=== PATIENT | male | born 1955 | race African-American/Black ===

== ENCOUNTER → 2017-07-26 | Outpatient (CLI) | payer OTHER ==
--- NOTE | 2017-07-26 16:04 | RADIOLOGY REPORT (SQ) ---
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 RADIONUCLIDE AND DOSE: 21.4 millicuries Tc99m HDP. The route of agent administration: Intravenous. ADDITIONAL DRUGS AND DOSES: None. TECHNIQUE: Routine delayed images at 3 hour post radionuclide injection acquired of the bony skeleto n including anterior and posterior whole-body projections and additional focused images as needed. LIMITATIONS: None. FINDINGS: BONES: Increased uptake posteriorly in the lower lumbar spine. Pattern suggest degenerati ve change. Symmetric uptake in the shoulders and knees consistent with degenerative change. KIDNEYS: Symmetric excretion without obstruction. OTHER: No other significant finding. IMPRESSION: Uptake in the lower lumbar spine is probably degenerative. Cannot entirely exclude rece nt compression fracture. Correlation with any plain films is recommended. RECOMMENDATION: See above. COMMENT: Quality measure 147: Current bone scan is compared with any available plain radiographs, p rior bone scans, and CT/MRI. TECHNICAL DOCUMENTATION: JOB ID: [id number] Michael [employer]- All Rights Reserved Reading location - IP/workstation name: Unknown
== END ==
LOC: RAD 10:44
PROVIDERS: ATTEND Family Medicine
DX: D49.2 Neoplasm of unspecified behavior of bone, soft tissue, and skin (principal)
CPT/HCPCS: 78306; A9561; Q9969